=== PATIENT | male | born 1975 | race Caucasian/White ===

== ENCOUNTER 2019-11-07 14:33 | Emergency (ER) | payer MEDICARE, MEDICAID ==
[~2019-11-07] VITALS: Ht 182.9 cm; Wt 87.4 kg
[~2019-11-07 14:33] MED LIST: ATOR20TA PO; BUTA-281 PO; DIVA500T2 PO; ECHI350C PO; ETAN50DI SUBCUT; LORA10TA7 PO; MIRT15TA3 PO; MULT-570 PO; PER10325T PO; TEMA15CA5 PO; TRAZ-251 PO
[2019-11-07 14:52] VITALS: BP 161/107
[2019-11-07] MEDS ORDERED: BENZ-16 PO (15:41)
[2019-11-07] MEDS ORDERED: AZIT500T PO (15:47)
== END 2019-11-07 16:17 | disposition home or self-care (01) ==
LOC: ER 14:34
DX: J06.9 Acute upper respiratory infection, unspecified (principal); J18.9 Pneumonia, unspecified organism; Z86.69 Personal history of other diseases of the nervous system and sense organs; Z98.890 Other specified postprocedural states; Z88.8 Allergy status to other drugs, medicaments and biological substances; Z79.2 Long term (current) use of antibiotics; Z79.899 Other long term (current) drug therapy
CPT/HCPCS: 71045; 99283

== ENCOUNTER 2023-01-27 23:24 | Emergency (ER) | payer MEDICARE, MEDICAID ==
[~2023-01-27] VITALS: Ht 182.9 cm; Wt 93.2 kg
--- NOTE | 2023-01-28 02:32 | NUR ---
pt refused sling. states he has one at home
[2023-01-28 03:49] VITALS: BP 145/95
== END 2023-01-28 03:50 | disposition home or self-care (01) ==
LOC: ER 23:24
DX: M25.511 Pain in right shoulder (principal); Z88.6 Allergy status to analgesic agent; Z79.899 Other long term (current) drug therapy; Z88.1 Allergy status to other antibiotic agents
CPT/HCPCS: 73030; 99283

== ENCOUNTER 2024-03-17 23:29 | Emergency (ER) | payer MEDICARE, MEDICAID ==
[~2024-03-17] VITALS: Ht 182.9 cm; Wt 98.0 kg
[~2024-03-17 23:29] MED LIST changes: +BUTA-245 PO; -BUTA-281 PO; +MIRT-138 PO; -MIRT15TA3 PO
[2024-03-18 02:54] VITALS: BP 160/94; PULSE 83; RESP 18; O2SAT 99
== END 2024-03-18 03:17 | disposition home or self-care (01) ==
LOC: ER 23:29
DX: M79.645 Pain in left finger(s) (principal); R22.42 Localized swelling, mass and lump, left lower limb; Z88.8 Allergy status to other drugs, medicaments and biological substances; Z79.899 Other long term (current) drug therapy
CPT/HCPCS: 73140; 99283

== ENCOUNTER 2025-05-16 16:26 | Emergency (ER) | payer MEDICARE, MEDICAID ==
[~2025-05-16] VITALS: Ht 180.3 cm; Wt 100.0 kg
[2025-05-16 17:06] VITALS: TEMP 98.3
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
[2025-05-16 17:36] VITALS: BP 136/102; PULSE 105; RESP 15; O2SAT 94
== END 2025-05-16 17:39 | disposition home or self-care (01) ==
LOC: ER 16:27
DX: R07.89 Other chest pain (principal); Z88.6 Allergy status to analgesic agent; V89.2XXA Person injured in unspecified motor-vehicle accident, traffic, initial encounter; Y93.89 Activity, other specified; Y92.410 Unspecified street and highway as the place of occurrence of the external cause; Y99.8 Other external cause status
CPT/HCPCS: 71046; 99283